=== PATIENT | male | born 1980 | race Caucasian/White ===

== ENCOUNTER → 2017-07-05 | Outpatient (REF) ==
[~2017-07-05] MED LIST: ZOLOFT 50MG50 MG PO
== END ==
LOC: WSOH 12:49
DX: Z00.00 Encounter for general adult medical examination without abnormal findings (principal)

== ENCOUNTER 2018-12-28 11:22 | Emergency (ER) | payer OTHER, BC | END 2018-12-28 13:56 | disposition short-term general hospital (02) | LOC: COL.ER 11:22 | DX: S82.002A Unspecified fracture of left patella, initial encounter for closed fracture (principal); S32.402A Unspecified fracture of left acetabulum, initial encounter for closed fracture; S73.005A Unspecified dislocation of left hip, initial encounter; Z23 Encounter for immunization; V43.62XA Car passenger injured in collision with other type car in traffic accident, initial encounter ==

== ENCOUNTER 2019-01-07 11:47 | Inpatient (IN) | payer BC ==
[~2019-01-07] VITALS: Ht 185.4 cm; Wt 116.7 kg
[2019-01-07 12:18] VITALS: BP 126/77; PULSE 96; TEMP 97.9
[2019-01-07] MEDS ORDERED: ELIQUIS 5MG PO (12:35)
[2019-01-07] MEDS ORDERED: TYLENOL 500MG500 MG PO (12:35)
[2019-01-07] MEDS ORDERED: ROBAXIN 50500 MG/TAB PO (12:36)
[2019-01-07] MEDS ORDERED: NEURONTIN300 MG/CAP PO (12:36)
[2019-01-07] MEDS ORDERED: ULTRAM 50MG TAB50 MG PO (12:37)
[2019-01-07 17:06] VITALS: BP 129/75; PULSE 100; TEMP 98.2
--- NOTE | 2019-01-07 21:11 | NUR ---
Report from Debbie at [facility]. Pt arrived via transport in , immobilizer to LLE and gauze, paper tape to forehead. and others visited. Pt kerry regular diet, took pills with thin liquids, alert and pleasant. Ice packs to LLE/hip. Pt used urinal at bedside. Cont of BM. Tylenol for pain given. Reports numbness to left foot since surgery. Pt signed admission forms, call light in reach, bed alarm on, report to Kaise.
--- NOTE | 2019-01-08 01:12 | NUR ---
Left leg cleansed with antibacterial bath wipes, lotion applied, per pt request. Pt tolerated well.
[2019-01-08 04:59] VITALS: BP 122/70; PULSE 90; TEMP 97.9
--- NOTE | 2019-01-08 05:04 | NUR ---
Patient in bed, awake. Ice pack to left heel, per pt request. Prn pain medication given per pt request.
--- NOTE | 2019-01-08 09:38 | NUR ---
Per Patti, IPR director, who spoke with Dr. Gil's nurse about permission for OT to shower pt if dressings/incisions are covered and kept dry.
--- NOTE | 2019-01-08 09:40 | NUR ---
Pt has diffuse rash: light red punctate to general redness, itchy, around Rt ankle, bilateral lower trunk; none on chest or middle of abd. Dressing to L knee without shadowing, gauze and tegaderm intact. L hip dressing with 1 cm shadowing, gauze and tegaderm intact. Ice to L hip. Immobilizer in place for amb with PT. Pt to BR with riser, total assist for laureano cares after BM, continent.
--- NOTE | 2019-01-08 12:27 | NUR ---
First visit from the laborer pole crew. No needs right now.
--- NOTE | 2019-01-08 14:58 | NUR ---
Dressing change to left eyebrow after pt showered. Removed old xeroform dressing, blotted with sterile saline and gauze, gently cleansed surrounding superficial scabbed area, applied new folded xeroform gauze, non-adherent dressing, and secured with large BA. Pt kerry well. No active drainage, wound bed is moist and bright red.
[2019-01-08 15:29] VITALS: BP 128/82; PULSE 97; TEMP 97.7
--- NOTE | 2019-01-08 15:55 | NUR ---
SW met with patient for initial intake. Patient lives at home with his . His PCP is Dr Logan and he obtains prescriptions from [facility]. Prior to hospitalization, patient did not use any home health services or DME. Patient reports he does have a general DPOA but he is unsure if it includes healthcare decisions. Patient will speak with his regarding the DPOA. WALTER then reviewed team conference notes and explained the purpose of IPR team conferences. WALTER informed patient that the plan is for patient to discharge on Sunday 01/14 and the team is recommending outpatient PT. WALTER also informed patient that if any medical equipment is recommended, SW will help with obtianing those things. SW will continue to follow.
--- NOTE | 2019-01-08 17:35 | NUR ---
Informed pt cortisone cream available, has visitors now, will call
--- NOTE | 2019-01-08 20:30 | NUR ---
HS meds all reviewed and taken without problems. Alert and oriented x 4. Immobilizer on LLE and CDI. Family just left for the night. Hydrocortisone cream applied to petechial rash to bilateral sides and top of left foot. Declines snack or needs at this time.
--- NOTE | 2019-01-08 23:00 | NUR ---
Patient rests quietly in bed. Respirations with ease.
--- NOTE | 2019-01-09 02:00 | NUR ---
Patient rests in bed with eyes closed. Respirations with ease.
[2019-01-09 04:00] VITALS: BP 129/71; PULSE 92; TEMP 98.2
--- NOTE | 2019-01-09 06:06 | NUR ---
patient reports tylenol helpful and right hip pain now 3 to 4 out of 10. Am meds reviewed and given with crackers. Denies needs.
--- NOTE | 2019-01-09 09:36 | NUR ---
Patient currently with therapy at this time. Tolerating diet well eating 100% of his breakfast. Patient in pleasent mood. Reports having a BM yesterday. Pain 6/10 given prn tylnol prior to his morning therapy. Will continue to monitor.
[2019-01-09 17:36] VITALS: BP 108/65; PULSE 95; TEMP 98.5
--- NOTE | 2019-01-09 18:00 | NUR ---
Patient attended all therapies today. He was made Independent in his room with his wheelchair this afternoon. He will be discharging on Sunday. Dressing to RLE remained CDI and secured in immobilizer today. Patient is NWB to that leg. He takes his pills whole with water. Family stopped by to see him today. Patient able to comprehend and express self with no difficulty. He was appropriate with staff this shift. Denied any questions at this time.
--- NOTE | 2019-01-09 21:30 | NUR ---
PT RESTING IN BED ABOUT READY TO FALL ASLEEP. CHANGED DRSG TO LT EYE BROW INJURY- SKIN TEAR WITH ABRASION. CLEANED WITH NS. APPLIED VASELINE GAUZE AND TELFA. SMALL AMT OF TANNISH EXUDATE NOTED ON OLD DRSG. PT MOD I IN WC. ENC TO CALL FOR SAFETY ASSIST IF NEEDED. PT AGREED. ICE PACK TO LT ANKLE PER REQUEST.
[2019-01-10 04:49] VITALS: BP 145/85; PULSE 81; TEMP 98.2
[2019-01-10 05:41] LABS: BASO # 0.1 (0.0-0.2); BASO % 0.4 % (0.0-2.0); GRAN # 9.2 (1.4-6.5); GRAN % 68.2 % (42.2-75.2); HEMOGLOBIN 11.7 g/dl (13.5-18.0); LYMPH # 2.8 (1.2-3.4); LYMPH % 20.8 % (20.0-51.0); MEAN CELL VOLUME 93 fl (80.0-100.0); MEAN CORPUSCULAR HEMOGLOBIN 30 pg (27.0-31.0); MEAN CORPUSCULAR HGB CONC 33 g/dl (33.0-37.0); MONO # 1.3 (0.1-0.6); MONO % 9.3 % (1.7-9.3); PLATELET COUNT 388 K/mm3 (130-400); RED BLOOD COUNT 3.87 M/mm3 (4.20-5.60); REDCELL DISTRIBUTION WIDTH-CV 13.2 % (11.5-14.5)
[2019-01-10 05:42] LABS: HEMATOCRIT 35.9 % (42.0-52.0)
[2019-01-10 05:49] LABS: CALCIUM 8.5 mg/dL (8.4-10.2); CREATININE, serum 0.81 mg/dL (0.66-1.25); MAGNESIUM 2.3 mg/dL (1.6-2.3); POTASSIUM 4.3 mmol/L (3.4-5.0)
--- NOTE | 2019-01-10 07:52 | NUR ---
Report from DMITRY Will. Pt kerry mod i in rm w/ bryan. Pt in NAD, talking calmly on cell phone.
--- NOTE | 2019-01-10 10:34 | NUR ---
Provided dressing change supplies for left eyebrow wound: xeroform gauze, telfa, paper tape. Gave follow up appointment info. Pt's and two children visiting.
--- NOTE | 2019-01-10 15:38 | NUR ---
SW met with patient about DME choice for crutches. Patient reports his has already rented a pair from [employer].
--- NOTE | 2019-01-10 16:06 | NUR ---
WALTER informed by nurse that patient will need a wheelchair. WALTER met with patient and his about DME choice. Patient signed choice form for [facility]. WALTER faxed order to [facility] and they will deliver wheelchair this afternoon.
[2019-01-10 17:10] VITALS: BP 134/75; PULSE 92; TEMP 98.2
--- NOTE | 2019-01-10 21:00 | NUR ---
PT RESTING IN BED. WATCHING TV. MOD IN ROOM IN W/C. SEE MAR FOR TYLENOL GIVEN. LLE SWOLLEN. STILL AHS NUMBNESS AND TINGLING TO LT FOOT. NO COMPLAINTS VERBALIZED.
--- NOTE | 2019-01-10 23:58 | NUR ---
PT UP IN WC OUT TO NURSES DESK. SNACK PROVIDED. PT TOOK STROLL IN HALLWAY. AND THN BACK TO BED. CALL LIGHT IN REACH.
[2019-01-11 06:32] VITALS: BP 114/74; PULSE 95; TEMP 97.7
[2019-01-11] MEDS ORDERED: HYDROCORTISO28.35 G1 TP (08:25)
--- NOTE | 2019-01-11 10:35 | NUR ---
WALTER contacted about Wheelchair delivery from [facility]. WALTER contacted full stack python developer. Patients are wanting to leave. Rep Andrés stated that he will deliver equipment to the house. Andrés full stack python developer number . WIll deliver around 11:30 am. Notified nurse Leia in [facility] for pt notification. No additonal concerns.
--- NOTE | 2019-01-11 10:47 | NUR ---
Patient reports sleeping well last night. He ate 100% of breakfast this morning. Pain to left leg this morning and given prn tramadol with good effect. Patient asked if wheelchair would be delivered today prior to discharge. Called WALTER Aguayo and she arranged to have wheelchair delivered to patient's home today. Kristin, wanted books salesperson to call her prior to delivery of wheelchair at [phone]. This was communicated to Dede. Discused discharge for today.
--- NOTE | 2019-01-11 10:53 | NUR ---
Patient Health Summary, Discharge Summary, and Home Meds printed and reviewed with patient. Stressed importance of follow up appointments. Reviewed medications. Belongings gathered by CARMEN/Maisha including clothing, cellphone, bellows charger assembler and crutches. Patient transported via wheelchair by Desi/DMITRY and seatbelted for ride home with and kids. Patient and denied questions. Patient's wheelchair will be delivered to patient's home about 11:30 AM this morning.
== END 2019-01-11 10:50 | disposition home or self-care (01) | DRG 559 ==
PROVIDERS: ADMIT Internal Medicine
DX: S32.422D Displaced fracture of posterior wall of left acetabulum, subsequent encounter for fracture with routine healing (principal); I26.99 Other pulmonary embolism without acute cor pulmonale; S22.41XD Multiple fractures of ribs, right side, subsequent encounter for fracture with routine healing; S82.002D Unspecified fracture of left patella, subsequent encounter for closed fracture with routine healing; V89.2XXD Person injured in unspecified motor-vehicle accident, traffic, subsequent encounter; G47.33 Obstructive sleep apnea (adult) (pediatric); F43.10 Post-traumatic stress disorder, unspecified; F17.210 Nicotine dependence, cigarettes, uncomplicated
CPT/HCPCS: 99222-AI; 99232-AI; 99239

== ENCOUNTER 2019-02-05 22:56 | Emergency (ER) | payer OTHER, BC ==
[~2019-02-05] VITALS: Ht 185.4 cm; Wt 113.6 kg
[~2019-02-05 22:56] MED LIST changes: +ELIQUIS 5MG PO; +HYDROCORTISO28.35 G1 TP; +NEURONTIN400 MG/CAP PO; +ROBAXIN 50500 MG/TAB PO; +TYLENOL 500MG500 MG PO; +ULTRAM 50MG TAB50 MG PO
[2019-02-05 23:02] VITALS: BP 137/86; TEMP 98.2
[2019-02-05 23:32] LABS: BASO # 0.1 (0.0-0.2); BASO % 0.6 % (0.0-2.0); GRAN # 4.5 (1.4-6.5); GRAN % 56.4 % (42.2-75.2); HEMATOCRIT 43.8 % (42.0-52.0); HEMOGLOBIN 14.4 g/dl (13.5-18.0); LYMPH # 2.7 (1.2-3.4); LYMPH % 33.8 % (20.0-51.0); MEAN CELL VOLUME 90 fl (80.0-100.0); MEAN CORPUSCULAR HEMOGLOBIN 30 pg (27.0-31.0); MEAN CORPUSCULAR HGB CONC 33 g/dl (33.0-37.0); MEAN PLATELET VOLUME 10.2 fl (7.4-10.4); MONO # 0.7 (0.1-0.6); MONO % 8.9 % (1.7-9.3); PLATELET COUNT 253 K/mm3 (130-400); RED BLOOD COUNT 4.88 M/mm3 (4.20-5.60); REDCELL DISTRIBUTION WIDTH-CV 12.2 % (11.5-14.5)
[2019-02-06 01:47] VITALS: PULSE 93
== END 2019-02-06 01:47 | disposition home or self-care (01) ==
LOC: COL.ER 22:56
PROVIDERS: Emergency Medicine
DX: M25.572 Pain in left ankle and joints of left foot (principal)
CPT/HCPCS: J1885

== ENCOUNTER → 2019-02-07 | Outpatient (CLI) | payer OTHER | LOC: COL.VAS 10:23 | DX: M25.472 Effusion, left ankle (principal); I82.442 Acute embolism and thrombosis of left tibial vein; Z98.890 Other specified postprocedural states ==

== ENCOUNTER → 2019-04-16 | Outpatient (RCR) | payer OTHER, BC | LOC: WSPT | DX: S32.422D Displaced fracture of posterior wall of left acetabulum, subsequent encounter for fracture with routine healing (principal); S82.002D Unspecified fracture of left patella, subsequent encounter for closed fracture with routine healing; Z98.890 Other specified postprocedural states ==

== ENCOUNTER 2019-06-02 07:45 | Outpatient (RCR) | payer OTHER, BC | END 2019-06-03 09:19 | disposition home or self-care (01) | LOC: WSPT 07:45 | DX: S32.492A Other specified fracture of left acetabulum, initial encounter for closed fracture (principal); Z98.890 Other specified postprocedural states ==

== ENCOUNTER 2019-08-13 08:49 | Emergency (ER) | payer BC ==
[~2019-08-13] VITALS: Ht 185.4 cm; Wt 122.7 kg
[2019-08-13 09:00] VITALS: TEMP 97.5
[2019-08-13 09:36] LABS: COLLECTION METHOD CLEAN CATCH
[2019-08-13 09:45] LABS: BASO # 0.1 (0.0-0.2); BASO % 0.9 % (0.0-2.0); GRAN # 5.2 (1.4-6.5); GRAN % 64.9 % (42.2-75.2); HEMATOCRIT 50.9 % (42.0-52.0); HEMOGLOBIN 16.8 g/dl (13.5-18.0); LYMPH # 2.1 (1.2-3.4); LYMPH % 25.9 % (20.0-51.0); MEAN CELL VOLUME 88 fl (80.0-100.0); MEAN CORPUSCULAR HEMOGLOBIN 29 pg (27.0-31.0); MEAN CORPUSCULAR HGB CONC 33 g/dl (33.0-37.0); MEAN PLATELET VOLUME 11.2 fl (7.4-10.4); MONO # 0.7 (0.1-0.6); MONO % 8.1 % (1.7-9.3); PLATELET COUNT 247 K/mm3 (130-400); RED BLOOD COUNT 5.77 M/mm3 (4.20-5.60); REDCELL DISTRIBUTION WIDTH-CV 12.6 % (11.5-14.5)
[2019-08-13] MEDS ORDERED: FLOMAX 0.40.4 MG/CAP PO (09:48)
[2019-08-13] MEDS ORDERED: NORCO 325 MG-51 TAB PO (09:48)
[2019-08-13] MEDS ORDERED: ZOFRAN ODT8 MG PO (09:48)
[2019-08-13 09:50] LABS: ALBUMIN 4.3 gm/dL (3.5-5.0); BILIRUBIN,TOTAL 0.7 mg/dL (0.0-1.0); CALCIUM 9.1 mg/dL (8.4-10.2); CREATININE, serum 0.96 (0.66-1.25); POTASSIUM 4.6 mmol/L (3.4-5.0); TOTAL PROTEIN 7.8 gm/dL (6.4-8.2)
[2019-08-13 10:35] LABS: MUCOUS Present /lpf; PH 5 (5-8); SQUAMOUS EPITHELIAL 0-2 /hpf; URINE APPEARANCE Cloudy; URINE BACTERIA None Seen /hpf; URINE BILIRUBIN Negative (NEGATIVE); URINE BLOOD 3+ (NEGATIVE); URINE COLOR Amber; URINE GLUCOSE Negative (NEGATIVE); URINE KETONE Negative (NEGATIVE); URINE LEUKOCYTE ESTERASE Negative (NEGATIVE); URINE NITRATE Negative (NEGATIVE); URINE PROTEIN(semi-quant) 2+ (NEGATIVE); URINE RBC >50 /hpf; URINE UROBILINOGEN Negative (NEGATIVE)
[2019-08-13 11:10] VITALS: BP 127/84; PULSE 88
== END 2019-08-13 11:10 | disposition home or self-care (01) ==
LOC: COL.ER 08:49
PROVIDERS: Emergency Medicine
DX: N20.2 Calculus of kidney with calculus of ureter (principal); F17.210 Nicotine dependence, cigarettes, uncomplicated
CPT/HCPCS: J1885; J2270; J2405; J7030; Q9967

== ENCOUNTER 2020-03-20 18:02 | Emergency (ER) | payer BC ==
[~2020-03-20] VITALS: Ht 185.4 cm; Wt 122.7 kg
[~2020-03-20 18:02] MED LIST changes: +AMBIEN 10MG10 MG PO; +ASPIRIN 81M81 MG/TA2 PO; +CENTRUM1 TA1; +COLACE 100100 MG/CAP PO; +DAZIDOX10 MG PO; +FLOMAX 0.40.4 MG/CAP PO; +LASIX 40MG TABL40 MG PO; +LEVAQUIN 750MG750 M1 PO; +LIORESAL 1010 MG/TAB PO; +LIPITOR20 MG PO; +METHADONE H5 MG/5 M1 PO; +MINIPRESS2 MG PO; +MIRALAX PA17 GM/Dose PO; +NORCO 325 MG-51 TAB PO; +NORVASC 10MG10 MG PO; +PROTONIX 40MG T40 MG PO; +PROZAC 20MG20 MG; +TOPROL XL 50MG50 MG PO; +VALIUM 10MG10 MG/TAB PO; +VOLTAREN GEL 1%1 TU TP; +ZOFRAN ODT8 MG PO; +ZYLOPRIM 100MG100 MG PO
[2020-03-20 18:06] VITALS: BP 170/95; TEMP 98.8
[2020-03-20] MEDS ORDERED: NORCO 325 MG-51 TAB PO (18:22)
[2020-03-20] MEDS ORDERED: CEPHALEXIN500 M1 PO (18:22)
[2020-03-20 18:40] VITALS: PULSE 89
== END 2020-03-20 18:40 | disposition home or self-care (01) ==
LOC: COL.ER 18:02
DX: T23.202A Burn of second degree of left hand, unspecified site, initial encounter (principal); T22.212A Burn of second degree of left forearm, initial encounter; T31.0 Burns involving less than 10% of body surface; Z79.82 Long term (current) use of aspirin; X08.8XXA Exposure to other specified smoke, fire and flames, initial encounter

== ENCOUNTER 2020-08-26 16:00 | Outpatient (RCR) | payer BC ==
[~2020-08-26 16:00] MED LIST changes: +CEPHALEXIN500 M1 PO
== END 2020-10-13 | disposition home or self-care (01) ==
LOC: WSPT
DX: M17.32 Unilateral post-traumatic osteoarthritis, left knee (principal)

== ENCOUNTER 2021-03-17 08:22 | Outpatient (RCR) | payer BC ==
[~2021-03-17 08:22] MED LIST changes: -PROZAC 20MG20 MG; +PROZAC 20MG20 MG PO
== END 2021-03-18 09:49 | disposition home or self-care (01) ==
LOC: WSPT 08:22
DX: Z98.890 Other specified postprocedural states (principal)

== ENCOUNTER 2021-03-27 15:46 | Emergency (ER) | payer BC ==
[~2021-03-27] VITALS: Ht 185.4 cm; Wt 131.8 kg
[2021-03-27 15:52] VITALS: TEMP 98
[2021-03-27] MEDS ORDERED: CEPHALEXIN500 M1 PO (16:44)
[2021-03-27 17:03] VITALS: BP 149/100; PULSE 88
== END 2021-03-27 17:03 | disposition home or self-care (01) ==
LOC: COL.ER 15:46
DX: S60.351A Superficial foreign body of right thumb, initial encounter (principal); F32.9 Major depressive disorder, single episode, unspecified; Z87.891 Personal history of nicotine dependence

== ENCOUNTER 2022-06-26 18:41 | Emergency (ER) | payer BC ==
[~2022-06-26] VITALS: Ht 185.4 cm; Wt 125.9 kg
[2022-06-26 18:49] VITALS: TEMP 98.8
[2022-06-26 19:09] LABS: BASO # 0.1 K/mm3 (0.0-0.2); BASO % 0.8 % (0.0-2.0); GRAN # 6.4 K/mm3 (1.4-6.5); GRAN % 61.8 % (42.2-75.2); HEMATOCRIT 48.1 % (42.0-52.0); HEMOGLOBIN 16.4 g/dl (13.5-18.0); LYMPH % 29.2 % (20.0-51.0); MEAN CELL VOLUME 88 fl (80.0-100.0); MEAN CORPUSCULAR HEMOGLOBIN 30 pg (27-31); MEAN CORPUSCULAR HGB CONC 34 g/dl (33.0-37.0); MEAN PLATELET VOLUME 10.7 fl (7.4-10.4); MONO # 0.8 K/mm3 (0.1-0.6); MONO % 8.1 % (1.7-9.3); PLATELET COUNT 272 K/mm3 (130-400); RED BLOOD COUNT 5.46 M/mm3 (4.20-5.60); REDCELL DISTRIBUTION WIDTH-CV 12.4 % (11.5-14.5)
[2022-06-26 19:21] LABS: PROTHROMBIN TIME 11.7 SECONDS (9.7-12.8)
[2022-06-26 19:24] LABS: PARTIAL THROMBOPLASTIN TIME 28.4 SECONDS (26.0-37.0)
[2022-06-26 19:32] LABS: ALANINE AMINOTRANSFERASE 86 U/L (0-55); ALBUMIN 3.7 gm/dL (3.5-5.0); ALKALINE PHOSPHATASE 90 U/L (40-150); ANION GAP 10 mmol/L (7-16); AST,SGOT 37 U/L (5-34); BILIRUBIN,TOTAL 0.9 mg/dL (0.2-1.2); BLOOD UREA NITROGEN 10 mg/dL (9-21); C-REACTIVE PROTEIN 0.31 mg/dL (0.00-0.50); CALCIUM 8.9 mg/dL (8.4-10.2); CARBON DIOXIDE 23 mmol/L (22-29); CHLORIDE 108 mmol/L (98-107); CREATININE, serum 0.98 mg/dL (0.72-1.25); GLUCOSE 98 mg/dL (70-99); LIPASE 32 U/L (8-78); SODIUM 141 mmol/L (136-145)
[2022-06-26 19:39] LABS: COLLECTION METHOD CLEAN CATCH
[2022-06-26 19:40] LABS: TROPONIN-I < 0.010 ng/mL (0.00-0.033)
[2022-06-26 20:15] LABS: MUCOUS Present (NOT PRESENT); SQUAMOUS EPITHELIAL 0-2 /hpf (0-10); URINE BACTERIA None Seen /hpf (NONE SEEN); URINE RBC 0-2 /hpf (0-2)
[2022-06-26 20:18] LABS: URINE APPEARANCE Clear (CLEAR/HAZY); URINE COLOR Yellow (YELLOW)
[2022-06-26 20:19] LABS: URINE GLUCOSE Negative (NEGATIVE); URINE KETONE TRACE (NEGATIVE); URINE PROTEIN(semi-quant) Negative (NEGATIVE); URINE UROBILINOGEN 0.2 E.U/dL (0.2-1.0)
[2022-06-26 20:20] LABS: URINE BLOOD Negative (NEGATIVE); URINE NITRATE Negative (NEGATIVE)
[2022-06-26 22:06] VITALS: BP 169/98; PULSE 56
== END 2022-06-26 22:06 | disposition home or self-care (01) ==
LOC: COL.ER 18:41
PROVIDERS: Family Medicine
DX: R10.11 Right upper quadrant pain (principal); Z90.49 Acquired absence of other specified parts of digestive tract
CPT/HCPCS: J2270; J2405; J7120; Q9967

== ENCOUNTER → 2022-06-28 | Outpatient (CLI) | payer BC | LOC: COL.RAD 12:13 | DX: R79.89 Other specified abnormal findings of blood chemistry (principal) ==

== ENCOUNTER 2022-07-28 09:59 | Day surgery (SDC) | payer BC ==
[~2022-07-28] VITALS: Ht 185.4 cm; Wt 127.2 kg
[2022-07-28 12:20] VITALS: BP 114/74; PULSE 70; TEMP 97.5
--- NOTE | 2022-07-28 12:20 | NUR ---
PATIENT TO ROOM 8 VIA CART. ASSIST TO CHAIR X 2. AT BEDSIDE. VITAL SIGNS WNL. PATIENT REQUESTS WATER AND PUDDING. WAITING FOR DOCTOR TO SPEAK WITH PATIENT. WILL CONTINUE TO MONITOR.
[2022-07-28 12:35] VITALS: BP 114/78; PULSE 56
--- NOTE | 2022-07-28 12:35 | NUR ---
DOCTOR AT BEDSIDE. VITAL SIGNS WNL. IV REMOVED. PATIENT DENIES ANY NAUSEA OR PAIN. WILL CONTINUE TO MONITOR.
[2022-07-28 12:50] VITALS: BP 125/82; PULSE 61
--- NOTE | 2022-07-28 12:51 | NUR ---
PATIENT IS READY FOR DISCHARGE. LAST SET OF VITALS WNL. DISCHARGE INSTRUCTIONS REVIEWED. WILL DISCHARGE ONCE PATIENT IS DRESSED.
[2022-07-28 13:26] VITALS: BP 137/93; PULSE 76; TEMP 97.4
== END 2022-07-28 12:52 | disposition home or self-care (01) ==
LOC: SDCO 09:59
DX: K64.0 First degree hemorrhoids (principal); K29.50 Unspecified chronic gastritis without bleeding; K21.00 Gastro-esophageal reflux disease with esophagitis, without bleeding; I10 Essential (primary) hypertension; E66.01 Morbid (severe) obesity due to excess calories; Z68.38 Body mass index [BMI] 38.0-38.9, adult; Z87.891 Personal history of nicotine dependence
CPT/HCPCS: J2704; J7030

== ENCOUNTER 2023-01-26 00:02 | Inpatient (IN) | payer BC ==
[~2023-01-26] VITALS: Ht 185.4 cm; Wt 134.3 kg
[2023-01-26 00:28] LABS: BASO # 0.1 K/mm3 (0.0-0.2); BASO % 0.5 % (0.0-2.0); EOS % 0.1 % (0.0-4.0); GRAN # 9.5 K/mm3 (1.4-6.5); GRAN % 69.8 % (42.2-75.2); HEMATOCRIT 47.5 % (42.0-52.0); HEMOGLOBIN 16.6 g/dl (13.5-18.0); LYMPH # 2.7 K/mm3 (1.2-3.4); LYMPH % 19.9 % (20.0-51.0); MEAN CELL VOLUME 86 fl (80.0-100.0); MEAN CORPUSCULAR HEMOGLOBIN 30 pg (27-31); MEAN CORPUSCULAR HGB CONC 35 g/dl (33.0-37.0); MEAN PLATELET VOLUME 9.5 fl (7.4-10.4); MONO # 1.3 K/mm3 (0.1-0.6); MONO % 9.3 % (1.7-9.3); PLATELET COUNT 363 K/mm3 (130-400); RED BLOOD COUNT 5.51 M/mm3 (4.20-5.60); REDCELL DISTRIBUTION WIDTH-CV 11.9 % (11.5-14.5)
[2023-01-26 00:44] LABS: ALBUMIN 3.4 gm/dL (3.5-5.0); BILIRUBIN,TOTAL 0.6 mg/dL (0.2-1.2); CALCIUM 9.1 mg/dL (8.4-10.2); CREATININE, serum 0.97 mg/dL (0.72-1.25); TOTAL PROTEIN 7.7 gm/dL (6.2-8.1)
[2023-01-26 00:50] LABS: TROPONIN-I 0.013 ng/mL (0.00-0.033)
[2023-01-26] MEDS ORDERED: COZAAR 50MG50 MG/TAB PO (02:20)
[2023-01-26 02:40] LABS: INR 1.1 (0.8-3.0); PROTHROMBIN TIME 12.5 SECONDS (9.7-12.8)
[2023-01-26 02:43] LABS: PARTIAL THROMBOPLASTIN TIME 29.3 SECONDS (26.0-37.0)
[2023-01-26] MEDS ORDERED: FLEXERIL 1010 MG/TAB PO (03:41)
[2023-01-26] MEDS ORDERED: MOTRIN 600600 MG/TAB PO (03:43)
[2023-01-26 03:44] VITALS: BP 153/85; PULSE 92; TEMP 98.3
--- NOTE | 2023-01-26 06:33 | NUR ---
Patient arrived to medical unit from ER at approximately 0340. Heparin bolus given and drip started at that time per orders. Complained of pain to right chest. Given PRN Morphine. Continued to have pain and given PRN [place] as requested. RT set up CPAP for patient. Voices no questions, needs, or concerns at this time. In bed with call light within reach.
[2023-01-26 07:20] VITALS: BP 120/89; PULSE 97; TEMP 98.6
--- NOTE | 2023-01-26 09:36 | NUR ---
Initial visit; Nurse with Patient, Shift Supervisor Melting left card offering God's blessings and information regarding the availability of [facility] at [facility].
--- NOTE | 2023-01-26 09:45 | NUR ---
SHIFT ASSESSMENT COMPLETED AND MORNING MEDICATIONS ADMINISTERED PER ORDER. PATIENT IS ALERT AND ORIENTED X4. LUNGS DIMINISHED THROUGHOUT. ON NS AND HEPARIN GTT, TOLERATING WELL. HEP XA SCHEDULED FOR 939, PENDING. PATIENT C/O 05/14 PAIN TO HIS RIGHT CHEST AND SIDE. PRN MORPHINE GIVEN PER ORDER, WHICH WAS INEFFECTIVE. PRN APAP THEN GIVEN, WHICH WAS ALSO INEFFECTIVE. DR. ZAMORA NOTIFIED OF PATIENT'S RIGHT SIDED CHEST AND SIDE PAIN FOR WHICH MORPHINE WAS INEFFECTIVE, NORCO DOSE INCREASED TO Q4 AND GIVEN PER ORDER. PATIENT DENIES SHORTNESS OF BREATH AT THIS TIME. CALL LIGHT WITHIN REACH.
--- NOTE | 2023-01-26 10:06 | NUR ---
Cloth Shrinking Supervisor met with PAtient at bedside to conduct Care Managment Assessment and discuss discharge planning. Patient lives in [place], [place] with his Larisa P: [phone] and his children. PAtient is established with PCP Dr. Rubi Stern and is covered by [facility] for insurance. Patient deniees the use of O2, DME, and home health services prior to admission. PAtient declines Advanced Directives at this time. Patient intends to discharge home when medically cleared. Discharge Plan: Home
[2023-01-26 11:09] VITALS: BP 150/78; PULSE 87; TEMP 98.1
[2023-01-26 15:16] VITALS: BP 149/84; PULSE 85; TEMP 98
[2023-01-26 20:27] VITALS: BP 143/79; PULSE 85; TEMP 98.1
--- NOTE | 2023-01-26 20:46 | NUR ---
Shift assessment completed at 2029. All medication given per emar. Pt reports chest pain for which he is currently requesting PRN IV pain med. heater helper forge notified of this event. Heparin gtt stopped at this time and Eliquis given. No other needs or concerns were express at this time. Tele on. R hand INT is CDI. Call light wiJajahin reach.
[2023-01-27] VITALS (8 sets, daily range): BP systolic 127–1741; BP diastolic 76–87; PULSE 96–111; TEMP 97.3–99.4
--- NOTE | 2023-01-27 04:33 | NUR ---
PCT reported to this SUPPLY ASSISTANT of high BP of 184/81. When pt got assessed, pain level was scored at 7/10 and requested pain medication. BP got reassessed around 15-20 min after PO pain med administration, and got 127/78. Pt scoring pain at 5/10 and states feeling better.
[2023-01-27 06:07] LABS: HEMATOCRIT 47.2 % (42.0-52.0); MEAN CELL VOLUME 89 fl (80.0-100.0); MEAN CORPUSCULAR HEMOGLOBIN 30 pg (27-31); MEAN CORPUSCULAR HGB CONC 34 g/dl (33.0-37.0); MEAN PLATELET VOLUME 9.9 fl (7.4-10.4); PLATELET COUNT 377 K/mm3 (130-400); REDCELL DISTRIBUTION WIDTH-CV 12.4 % (11.5-14.5)
[2023-01-27 06:19] LABS: CALCIUM 9.5 mg/dL (8.4-10.2); CREATININE, serum 0.93 mg/dL (0.72-1.25); POTASSIUM 4.3 mmol/L (3.5-4.5)
--- NOTE | 2023-01-27 07:07 | NUR ---
Critical lab received on WBC. Provider notified.
[2023-01-27 07:33] LABS: BAND 7 % (0-10); LYMPHOCYTE 9 % (20.0-51.0); NEUTROPHILS 81 % (42.0-75.2)
[2023-01-27 07:36] LABS: PLATELET ESTIMATE INCREASED (NORMAL)
[2023-01-27 08:36] LABS: COLLECTION METHOD CLEAN CATCH
[2023-01-27 09:13] LABS: MUCOUS Present (NOT PRESENT); SQUAMOUS EPITHELIAL 0-2 /hpf (0-10); URINE BACTERIA None Seen /hpf (NONE SEEN); URINE RBC 0-2 /hpf (0-2); URINE WBC 0-2 /hpf (0-2)
[2023-01-27 09:19] LABS: URINE APPEARANCE Clear (CLEAR/HAZY); URINE COLOR Amber (YELLOW); URINE GLUCOSE Negative (NEGATIVE); URINE KETONE 2+ (NEGATIVE); URINE PROTEIN(semi-quant) 2+ (NEGATIVE)
[2023-01-27 09:20] LABS: URINE BLOOD Negative (NEGATIVE); URINE NITRATE Positive (NEGATIVE); URINE UROBILINOGEN 0.2 E.U/dL (0.2-1.0)
--- NOTE | 2023-01-27 22:50 | NUR ---
Pt sleeping using CPAP upon entry at 2030. Shift assessment completed. A&Ox4. All medication given per emar. Lovenox administered. Pain scored at 4-5/10 and reported feeling better than yesterday, although SOB remains the same, and requested PRN pain med. R hand INT is CDI. Pt expressed no more needs or concerns. Belongings and call light were left within reach.
[2023-01-28 04:26] VITALS: BP 133/84; PULSE 100; TEMP 98
[2023-01-28 06:25] LABS: HEMATOCRIT 45.1 % (42.0-52.0); HEMOGLOBIN 15.3 g/dl (13.5-18.0); MEAN CELL VOLUME 90 fl (80.0-100.0); MEAN CORPUSCULAR HEMOGLOBIN 31 pg (27-31); MEAN CORPUSCULAR HGB CONC 34 g/dl (33.0-37.0); MEAN PLATELET VOLUME 10.3 fl (7.4-10.4); PLATELET COUNT 373 K/mm3 (130-400); RED BLOOD COUNT 5.02 M/mm3 (4.20-5.60); REDCELL DISTRIBUTION WIDTH-CV 12.3 % (11.5-14.5)
[2023-01-28 06:35] LABS: CALCIUM 9.3 mg/dL (8.4-10.2); CREATININE, serum 0.98 mg/dL (0.72-1.25); POTASSIUM 4.3 mmol/L (3.5-4.5)
[2023-01-28 07:11] VITALS: BP 136/80; PULSE 103; TEMP 100.8
[2023-01-28 07:24] LABS: BAND 1 % (0-10); EOSINOPHIL 1 % (0-4); LYMPHOCYTE 9 % (20.0-51.0); NEUTROPHILS 81 % (42.0-75.2); PLATELET ESTIMATE NORMAL (NORMAL)
[2023-01-28 11:33] VITALS: BP 143/78; PULSE 91; TEMP 98.4
--- NOTE | 2023-01-28 12:17 | NUR ---
Lead Business Systems Analyst rounds: Patient was in bed with a semi-darkened room. Patient accepted visit. Patient talked about sports, with [employer] in the [employer] 8 and all the other major accomplishements of [place] teams this year, including the [employer] winning the Super Bowl. 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 When CT arrived, Lead Business Systems Analyst provided short blessing for Patient.
[2023-01-28 15:48] VITALS: BP 145/83; PULSE 95; TEMP 99.1
[2023-01-28 19:41] VITALS: BP 143/84; PULSE 94; TEMP 98.4
--- NOTE | 2023-01-28 20:22 | NUR ---
Shift assessment completed at 1999. A&O x4. Pt states feeling much better tonight. O2 at 2L per NC. R Hand peripheral line is CDI. All medications given per emar. Per orders pt will be NPO at midnight. Pt verbalized understanding. No pain was reported at this time. Pt voiced no needs or concerns. Call light was left within reach.
[2023-01-29] VITALS (13 sets, daily range): BP systolic 120–155; BP diastolic 75–191; PULSE 77–96; TEMP 97.7–98.3
[2023-01-29 06:20] LABS: HEMOGLOBIN 14.9 g/dl (13.5-18.0); MEAN CELL VOLUME 87 fl (80.0-100.0); MEAN CORPUSCULAR HEMOGLOBIN 30 pg (27-31); MEAN CORPUSCULAR HGB CONC 35 g/dl (33.0-37.0); MEAN PLATELET VOLUME 10.3 fl (7.4-10.4); PLATELET COUNT 374 K/mm3 (130-400); RED BLOOD COUNT 4.93 M/mm3 (4.20-5.60); REDCELL DISTRIBUTION WIDTH-CV 11.9 % (11.5-14.5)
--- NOTE | 2023-01-29 06:32 | NUR ---
Critical lab received on WBC. Notified to provider. No new orders at this time.
[2023-01-29 06:34] LABS: CALCIUM 9.8 mg/dL (8.4-10.2); CREATININE, serum 0.86 mg/dL (0.72-1.25); MAGNESIUM 2.6 mg/dL (1.6-2.6); POTASSIUM 4.2 mmol/L (3.5-4.5)
[2023-01-29 07:27] LABS: BAND 1 % (0-10); LYMPHOCYTE 6 % (20.0-51.0); NEUTROPHILS 83 % (42.0-75.2)
[2023-01-29 07:28] LABS: PLATELET ESTIMATE NORMAL (NORMAL)
--- NOTE | 2023-01-29 08:30 | NUR ---
PATIENT AWAKE AND ALERT, REQUESTING TO SHOWER. ASSISTED BY PCT.
--- NOTE | 2023-01-29 08:40 | NUR ---
PICC TEAM IN ROOM, WILL REAPPLY PATIENTS TELE SOON BEDSIDE PICC PLACEMENT IS COMPLETE.
--- NOTE | 2023-01-29 09:30 | NUR ---
PATIENT RESTING IN BED, TELE REAPPLIED, PICC LINE FLUSHING AND PATENT. PATIENT DENIES ANY NEEDS OR COPMLAINTS AT THIS TIME. IV ANTX INFUSING.
--- NOTE | 2023-01-29 15:00 | NUR ---
Telehealth visit conducted with Dr. Mak Zimmerman, Infectious Disease. Patient consented to visit. Environmental Lead initiated without any difficulties during exam. All questions were answered by Dr. Zimmerman.
--- NOTE | 2023-01-29 15:10 | NUR ---
PATIENT AWAKE AND ALERT RESTING IN BED. SOME PAIN TO R SIDE. CHEST TUBE INTACT, HOOKED UP TO WALL SECTION, DRAINAGE AT 35CC ON ARRIVAL. VITAL SIGNS STABLE.
--- NOTE | 2023-01-29 19:00 | NUR ---
PATIENT AWAKE AND ALERT, RESTING IN BED WITH FAMILY AT BEDSIDE. CHEST TUBE INTACT AND STILL TO WATER SEAL WITH WALL SUCTION. DRAINAGE MARKED AT 1800, NIGHT RN AWARE AND WITNESSED AFTER REPORT. PATIETNS CALL LIGHT WTIHIN REACH.
[2023-01-30] VITALS (7 sets, daily range): BP systolic 121–138; BP diastolic 64–84; PULSE 66–88; TEMP 97.5–98
--- NOTE | 2023-01-30 05:15 | NUR ---
ASSESSMENT COMPLETE FOR INCOME TAX MANAGER. PT COMPLAINED OF SOME RT LATERAL CHEST PAIN. PT GIVEN NORCO FOR PAIN. PT FELT NORCO WAS EFFECTIVE FOR HIS PAIN. CHEST TUBE DRAINAGE MARKED AT THE 130 LINE. CHEST TUBE DRESSING CDI. CALL LIGHT WITHIN REACH.
[2023-01-30 07:10] LABS: BASO % 0.2 % (0.0-2.0); GRAN # 20.8 K/mm3 (1.4-6.5); GRAN % 87.1 % (42.2-75.2); HEMATOCRIT 42.4 % (42.0-52.0); HEMOGLOBIN 14.7 g/dl (13.5-18.0); LYMPH # 1.1 K/mm3 (1.2-3.4); LYMPH % 4.7 % (20.0-51.0); MEAN CELL VOLUME 88 fl (80.0-100.0); MEAN CORPUSCULAR HEMOGLOBIN 30 pg (27-31); MEAN CORPUSCULAR HGB CONC 35 g/dl (33.0-37.0); MEAN PLATELET VOLUME 10.1 fl (7.4-10.4); MONO # 1.7 K/mm3 (0.1-0.6); PLATELET COUNT 406 K/mm3 (130-400); RED BLOOD COUNT 4.84 M/mm3 (4.20-5.60); REDCELL DISTRIBUTION WIDTH-CV 12.2 % (11.5-14.5)
[2023-01-30 07:20] LABS: CALCIUM 9.1 mg/dL (8.4-10.2); CREATININE, serum 0.78 mg/dL (0.72-1.25); MAGNESIUM 2.5 mg/dL (1.6-2.6); POTASSIUM 3.8 mmol/L (3.5-4.5)
[2023-01-30 08:09] LABS: BAND 3 % (0-10); LYMPHOCYTE 4 % (20.0-51.0); NEUTROPHILS 87 % (42.0-75.2)
[2023-01-30 08:10] LABS: PLATELET ESTIMATE INCREASED (NORMAL)
[2023-01-30 09:10] LABS: ANTI-THROMBIN III 100 % (72-128)
[2023-01-30 09:15] LABS: PROTEIN C ACTIVITY 98 % (70-150)
[2023-01-30 11:08] LABS: PARTIAL THROMBOPLASTIN TIME 25.6 SECONDS (26.0-37.0)
--- NOTE | 2023-01-30 15:30 | NUR ---
Telehealth visit conducted with Dr. Mak Zimmerman, Infectious Disease. Patient consented to visit. Rental Management Trainee initiated without any difficulties during exam. All questions were answered by Dr. Zimmerman.
[2023-01-31 04:54] VITALS: BP 124/72; PULSE 54; TEMP 97.9
[2023-01-31 06:44] LABS: HEMATOCRIT 41.4 % (42.0-52.0); HEMOGLOBIN 14.2 g/dl (13.5-18.0); MEAN CELL VOLUME 89 fl (80.0-100.0); MEAN CORPUSCULAR HEMOGLOBIN 31 pg (27-31); MEAN CORPUSCULAR HGB CONC 34 g/dl (33.0-37.0); MEAN PLATELET VOLUME 10.5 fl (7.4-10.4); PLATELET COUNT 376 K/mm3 (130-400); RED BLOOD COUNT 4.65 M/mm3 (4.20-5.60); REDCELL DISTRIBUTION WIDTH-CV 12.4 % (11.5-14.5)
--- NOTE | 2023-01-31 06:46 | NUR ---
pt on 2L O2 per CPAP during the noc, CT to water seal with 20 cc out this shift, heparin gtt @ 25.5 cc/hr, awaiting am hepXa, norco x2 tonight for pain around CT site. up ad jennifer in room.
--- NOTE | 2023-01-31 07:00 | NUR ---
PT RESTING IN BED. PTS CT TO RIGHT TO WATER SEAL. PT DENIES PAIN OR SOB. PT HAS CALL LIGHT AND INSTRUCTED TO ALL WITH ALL NEEDS.
[2023-01-31 07:04] LABS: CALCIUM 8.7 mg/dL (8.4-10.2); CREATININE, serum 0.76 mg/dL (0.72-1.25); MAGNESIUM 2.6 mg/dL (1.6-2.6); POTASSIUM 4.1 mmol/L (3.5-4.5)
[2023-01-31 07:21] LABS: BAND 5 % (0-10); EOSINOPHIL 1 % (0-4); LYMPHOCYTE 7 % (20.0-51.0); METAMYELOCYTE 1 % (0-0); NEUTROPHILS 79 % (42.0-75.2)
[2023-01-31 07:25] LABS: PLATELET ESTIMATE NORMAL (NORMAL)
[2023-01-31 08:00] VITALS: BP 136/80; PULSE 80; TEMP 97.6
[2023-01-31 12:17] VITALS: BP 134/74; PULSE 72; TEMP 97.6
[2023-01-31 15:17] VITALS: BP 142/82; PULSE 86; TEMP 98.3
[2023-01-31] MEDS ORDERED: AMOXICILLIN 8751 TAB PO (15:58)
[2023-01-31] MEDS ORDERED: ELIQUIS 5MG PO (16:01)
[2023-01-31] MEDS ORDERED: PREDNISONE10 MG PO (16:14)
[2023-01-31 19:56] VITALS: BP 152/82; PULSE 77; TEMP 97.4
[2023-02-01 00:02] VITALS: BP 149/81; PULSE 70; TEMP 98.2
[2023-02-01 05:09] VITALS: BP 129/80; PULSE 60; TEMP 97.4
--- NOTE | 2023-02-01 05:50 | NUR ---
pt on 2L O2 per CPAP during the noc, rt side chest tube dc'd yesterday prior to this RN's arrival, dsg CDI. no pain reported this shift. up ad jennifer in room, PICC in CODY patent/secure, am labs drawn from red port w/o difficulty.
[2023-02-01 07:24] LABS: HEMATOCRIT 43.6 % (42.0-52.0); HEMOGLOBIN 14.4 g/dl (13.5-18.0); MEAN CELL VOLUME 90 fl (80.0-100.0); MEAN CORPUSCULAR HEMOGLOBIN 30 pg (27-31); MEAN CORPUSCULAR HGB CONC 33 g/dl (33.0-37.0); MEAN PLATELET VOLUME 10.7 fl (7.4-10.4); PLATELET COUNT 419 K/mm3 (130-400); RED BLOOD COUNT 4.84 M/mm3 (4.20-5.60); REDCELL DISTRIBUTION WIDTH-CV 12.3 % (11.5-14.5)
[2023-02-01 07:44] LABS: CALCIUM 8.6 mg/dL (8.4-10.2); CREATININE, serum 0.78 mg/dL (0.72-1.25); MAGNESIUM 2.3 mg/dL (1.6-2.6); POTASSIUM 4.2 mmol/L (3.5-4.5)
[2023-02-01 07:46] VITALS: BP 137/83; PULSE 59; TEMP 97.5
[2023-02-01 08:33] LABS: LYMPHOCYTE 21 % (20.0-51.0); MYELOCYTE 2 % (0-0); NEUTROPHILS 67 % (42.0-75.2)
[2023-02-01 08:34] LABS: PLATELET ESTIMATE INCREASED (NORMAL)
--- NOTE | 2023-02-01 09:42 | NUR ---
PATIENT RECEIVED DISCHARGE INSTRUCTIONS. ACKNOWLEDGED UNDERSTANDING.
== END 2023-02-01 11:59 | disposition home or self-care (01) | DRG 176 ==
LOC: COL.ER 00:02 → MEDICAL 02:05
PROVIDERS: Internal Medicine; Internal Medicine Pulmonary Disease; Nurse Practitioner; Nurse Practitioner Family; Surgery; ADMIT Student in an Organized Health Care Education/Training Program
PROC: 02HV33Z Insertion of Infusion Device into Superior Vena Cava, Percutaneous Approach (ICD-10-PCS; 2023-01-29)
PROC: 0W9930Z Drainage of Right Pleural Cavity with Drainage Device, Percutaneous Approach (ICD-10-PCS; principal; 2023-01-29 13:45)
DX: I26.99 Other pulmonary embolism without acute cor pulmonale (principal); J90 Pleural effusion, not elsewhere classified; J98.11 Atelectasis; I10 Essential (primary) hypertension; F41.9 Anxiety disorder, unspecified; F32.A Depression, unspecified; G89.29 Other chronic pain; M79.662 Pain in left lower leg; D72.829 Elevated white blood cell count, unspecified; F12.90 Cannabis use, unspecified, uncomplicated; G47.33 Obstructive sleep apnea (adult) (pediatric); F43.10 Post-traumatic stress disorder, unspecified; Z86.711 Personal history of pulmonary embolism; Z90.49 Acquired absence of other specified parts of digestive tract; Z87.891 Personal history of nicotine dependence; Z79.899 Other long term (current) drug therapy; Z88.1 Allergy status to other antibiotic agents; Z86.16 Personal history of COVID-19
CPT/HCPCS: A7041; A7048; C1751; G0378; J1644; J1650; J2270; J2543; J2704; J2920; J3010; J7030; Q9967

== ENCOUNTER → 2023-11-28 | Outpatient (CLI) | payer BC ==
[~2023-11-28] MED LIST changes: +AMOXICILLIN 8751 TAB PO; +Albuterol 0.083% Neb Soln 2.5 MG/3 ML UD IH ONE; +COZAAR 50MG50 MG/TAB PO; +FLEXERIL 1010 MG/TAB PO; +MOTRIN 600600 MG/TAB PO; +Methacholine Vial A (Clear Label Base-Cntrl) IH ONE; +Methacholine Vial B (Red Label) 0.0625 MG/ML 3 ML VIAL.NEB IH ONE; +Methacholine Vial C (Orange Label) 0.25 MG/ML 3 ML VIAL.NEB IH ONE; +Methacholine Vial D (Yellow Label) 1 MG/ML 3 ML VIAL.NEB IH ONE; +Methacholine Vial E (Green Label) 4 MG/ML 3 ML VIAL.NEB IH ONE; +PREDNISONE10 MG PO
== END ==
LOC: COL.CARD 10:01
DX: R06.02 Shortness of breath (principal); Z87.891 Personal history of nicotine dependence
CPT/HCPCS: J7674

== ENCOUNTER 2024-05-10 10:32 | Emergency (ER) | payer BC ==
[~2024-05-10] VITALS: Ht 185.4 cm; Wt 122.7 kg
[~2024-05-10 10:32] MED LIST changes: -Albuterol 0.083% Neb Soln 2.5 MG/3 ML UD IH ONE; -Methacholine Vial A (Clear Label Base-Cntrl) IH ONE; -Methacholine Vial B (Red Label) 0.0625 MG/ML 3 ML VIAL.NEB IH ONE; -Methacholine Vial C (Orange Label) 0.25 MG/ML 3 ML VIAL.NEB IH ONE; -Methacholine Vial D (Yellow Label) 1 MG/ML 3 ML VIAL.NEB IH ONE; -Methacholine Vial E (Green Label) 4 MG/ML 3 ML VIAL.NEB IH ONE
[2024-05-10 10:39] VITALS: TEMP 98
[2024-05-10] MEDS ORDERED: Morphine 4 MG/ML VIAL IV ONE (11:00)
[2024-05-10] MEDS ORDERED: NS 1,000 ML IV ONE (11:00)
[2024-05-10] MEDS ORDERED: Ondansetron 4 MG/2 ML VIAL IV ONE (11:15)
[2024-05-10 11:23] LABS: BASO # 0.1 K/mm3 (0.0-0.2); BASO % 0.6 % (0.0-2.0); EOS % 0.1 % (0.0-4.0); GRAN # 9.9 K/mm3 (1.4-6.5); GRAN % 78.2 % (42.2-75.2); HEMATOCRIT 50.2 % (42.0-52.0); HEMOGLOBIN 17.3 g/dl (13.5-18.0); LYMPH # 1.9 K/mm3 (1.2-3.4); MEAN CELL VOLUME 87 fl (80.0-100.0); MEAN CORPUSCULAR HEMOGLOBIN 30 pg (27-31); MEAN CORPUSCULAR HGB CONC 35 g/dl (33.0-37.0); MEAN PLATELET VOLUME 10.4 fl (7.4-10.4); MONO # 0.7 K/mm3 (0.1-0.6); MONO % 5.8 % (1.7-9.3); PLATELET COUNT 310 K/mm3 (130-400); RED BLOOD COUNT 5.78 M/mm3 (4.20-5.60)
[2024-05-10 11:39] LABS: ALBUMIN 3.9 g/dL (3.5-5.0); BILIRUBIN,TOTAL 1.1 mg/dL (0.2-1.2); CALCIUM 9.4 mg/dL (8.4-10.2); CREATININE, serum 0.85 mg/dL (0.72-1.25); POTASSIUM 4.1 mEq/L (3.5-4.5); TOTAL PROTEIN 7.6 g/dl (6.2-8.1)
[2024-05-10] MEDS ORDERED: NORCO 325 MG-51 TAB PO (12:20)
[2024-05-10] MEDS ORDERED: ZOFRAN ODT4 MG PO (12:20)
[2024-05-10 12:30] VITALS: BP 126/70; PULSE 79
== END 2024-05-10 13:53 | disposition home or self-care (01) ==
LOC: COL.ER 10:32
PROVIDERS: Personal Emergency Response Attendant
DX: R51.9 Headache, unspecified (principal); R11.10 Vomiting, unspecified; Z86.711 Personal history of pulmonary embolism; Z79.01 Long term (current) use of anticoagulants
CPT/HCPCS: J0780; J2270; J2405; J7030